=== PATIENT | male | born 1985 | race Hispanic/Latino ===

== ENCOUNTER 2016-12-10 10:42 | Day surgery (SDC) | payer MEDICAID ==
[~2016-12-10] VITALS: Ht 177.8 cm; Wt 104.3 kg
[~2016-12-10 10:42] MED LIST: HUMIRA PEN40 MG/0.8; MULTIVITAMIN PO; PROVENTIL HFA IN; TRAMADOL HYDROC50 MG PO
[2016-12-10 13:53] VITALS: BP 101/57
[2016-12-10] MEDS ORDERED: PRILOSEC20 MG/CAP PO (14:41)
== END 2016-12-10 14:30 | disposition home or self-care (01) | DRG 386 ==
LOC: ENDO 10:42 → ORM 19:30 → ENDO 19:30
PROVIDERS: ATTEND Internal Medicine Gastroenterology
PROC: 0DBH8ZX Excision of Cecum, Via Natural or Artificial Opening Endoscopic, Diagnostic (ICD-10-PCS; principal; 2016-12-10)
PROC: 0DBG8ZX Excision of Left Large Intestine, Via Natural or Artificial Opening Endoscopic, Diagnostic (ICD-10-PCS; 2016-12-10)
PROC: 0D7 Gastrointestinal System, Dilation (ICD-10-PCS; 2016-12-10)
PROC: 0DBN8ZX Excision of Sigmoid Colon, Via Natural or Artificial Opening Endoscopic, Diagnostic (ICD-10-PCS; 2016-12-10)
DX: K50.80 Crohn's disease of both small and large intestine without complications (principal); K62.5 Hemorrhage of anus and rectum; K63.3 Ulcer of intestine; K56.60 Unspecified intestinal obstruction; K91.850 Pouchitis; R19.7 Diarrhea, unspecified; K21.9 Gastro-esophageal reflux disease without esophagitis; K62.1 Rectal polyp; K64.8 Other hemorrhoids; K64.4 Residual hemorrhoidal skin tags; Z79.899 Other long term (current) drug therapy; Z93.3 Colostomy status